=== PATIENT | female | born 1980 | race Caucasian/White ===

== ENCOUNTER 2017-09-25 20:54 | Emergency (ER) | payer OTHER ==
[2017-09-25] MEDS ORDERED: Ketorolac INJ* 30 MG/ML 1 ML VIAL IV PUSH ONE (22:46)
[2017-09-25] MEDS ORDERED: Acetaminophen TAB* 325 MG PO ONE (22:46)
[2017-09-25] MEDS ORDERED: NS 0.9% 1000 ML* 1,000 ML IV ONE (22:46)
[2017-09-25] MEDS ORDERED: Metoclopramide IV* 5 MG/ML 2 ML VIAL IV SLOW PU ONE (22:47)
[2017-09-25 23:33] LABS: ABS Basophils 0 10^3/ul (0-0.2); ABS Eosinophils 0 10^3/ul (0-0.6); ABS Lymphocytes 0.9 10^3/ul (1.0-4.8); ABS Monocytes 0.7 10^3/ul (0-0.8); ABS Neutrophils 4.5 10^3/ul (1.5-7.7); ABS Nucleated RBC 0 10^3/ul; Eosinophil % 0.6 % (0-6); Hematocrit 41 % (35-47); Hemoglobin 13.8 g/dl (12.0-16.0); Lymphocyte % 14.3 % (25-47); Mean Corpuscular HGB Conc 34 g/dl (31-36); Mean Corpuscular Hemoglobin 30 pg (27-31); Mean Corpuscular Volume 87 fL (80-97); Mean Platelet Volume 8.1 um3 (7.4-10.4); Nucleated Red Blood Cells % 0; Platelet Count 150 10^3/ul (150-450); Red Blood Count 4.69 10^6/ul (4.00-5.40); Red Cell Distribution Width 14 % (10.5-15); White Blood Count 6.2 10^3/ul (3.5-10.8)
[2017-09-25 23:42] LABS: INR 1.08 (0.77-1.02)
[2017-09-26 00:55] LABS: Urine Appearance Cloudy; Urine Blood 1+ (Negative); Urine Color Yellow; Urine Ketones Trace (Negative); Urine Protein Negative (Negative); Urine Urobilinogen Negative (Negative)
[2017-09-26] MEDS ORDERED: Lidocaine 2% EPI 1:200000 MPF*10-20 ML VIAL ONE (01:03)
[2017-09-26 02:33] VITALS: BP 90/53
--- NOTE | 2017-09-26 02:59 | ED ---
Zenia Brown Emily, scribed for Lakeisha Bee MD on 09/25/17 at 2239 . Headache - HPI Summary HPI Summary: This patient is a 36 year old F presenting to [facility] accompanied by family with a chief complaint of headache that began 5 days ago. The patient rates the pain 8/10 in severity. Symptoms aggravated by light. Symptoms alleviated by nothing. Patient reports fever (100 F), chills, rash around umbilicus (began 3 days ago) , dyspnea, rib pain, neck pain, back pain, pain in bones, and decreased appetite. Patient denies cough, sore throat, nausea, and vomiting. - History Of Current Complaint Chief Complaint: EDHeadache Stated Complaint: HEADACHE/RED SPOTS ON STOMACH Time Seen by Provider: 09/25/17 22:24 Hx Obtained From: Patient Hx Last Menstrual Period: 08/28/13 Onset/Duration: Sudden Onset, Started days ago, Still Present Initially Headache Was: Severe Currently Pain Is: Current Pain Scale(0-10)= - 8, Severe Timing: Constant Aggravating Factor: Nothing Allevating Factors: Nothing Associated Signs And Symptoms: Other (Noted In Comments) - Positive fever (100 F ), chills, rash around umbilicus (began 3 days ago), dyspnea, rib pain, neck pain, back pain, pain in bones, and decreased appetite. Negative cough, sore throat, nausea, and vomiting. - Allergies/Home Medications Allergies/Adverse Reactions: Allergies Allergy/AdvReac Type Severity Reaction Status Date / Time apple Allergy Itching Verified 09/25/17 21:13 elias Allergy Itching Verified 09/25/17 21:13 codeine Allergy Vomiting Verified 09/25/17 21:13 mold Allergy Airway Verified 09/25/17 21:13 Obstruction MS Codeine [Codeine] Allergy Vomiting Verified 09/24/13 10:22 peach Allergy Itching Verified 09/25/17 21:13 PMH/Surg Hx/FS Hx/Imm Hx Previously Healthy: No Endocrine/Hematology History: Denies: Hx Diabetes, Hx Thyroid Disease Cardiovascular History: Denies: Hx Hypertension Respiratory History: Reports: Hx Asthma Denies: Hx Chronic Obstructive Pulmonary Disease (COPD) GI History: Denies: Hx Ulcer - Surgical History Surgery Procedure, Year, and Place: brain surgery 1994 Infectious Disease History: Unable to Obtain/Confirm Infectious Disease History: Denies: Hx Hepatitis, Hx Human Immunodeficiency Virus (HIV), Traveled Outside the [place] in Last 30 Days - Family History Known Family History: Negative: Diabetes - Social History Occupation: Employed Part-time Lives: Alone Alcohol Use: None Hx Substance Use: No Substance Use Type: Reports: None Hx Tobacco Use: No Smoking Status (MU): Never Smoked Tobacco Review of Systems Positive: Fever, Chills Negative: Sore Throat Positive: Other - Positive dyspnea. Negative: Cough Positive: Other - Positive decreased appetite. Negative: Vomiting, Nausea Positive: Other - Positive neck pain, back pain, and pain "in bones" Positive: Rash All Other Systems Reviewed And Are Negative: Yes Physical Exam - Summary Physical Exam Summary: VITAL SIGNS: Reviewed. GENERAL: Patient is a well-developed and nourished female who is lying comfortable in the stretcher. Patient is not in any acute respiratory distress. HEAD AND FACE: No signs of trauma. No ecchymosis, hematomas or skull depressions. No sinus tenderness. EYES: PERRLA, EOMI x 2, No injected conjunctiva, no nystagmus. EARS: Hearing grossly intact. Ear canals and tympanic membranes are within normal limits. MOUTH: Oropharynx within normal limits. NECK: trachea is midline, no adenopathy, no JVD, no carotid bruit, no c-spine tenderness, nuchal rigidity CHEST: Symmetric, no tenderness at palpation LUNGS: Clear to auscultation bilaterally. No wheezing or crackles. CVS: Regular rate and rhythm, S1 and S2 present, no murmurs or gallops appreciated. ABDOMEN: Soft, non-tender. No signs of distention. No rebound no guarding, and no masses palpated. Bowel sounds are normal. EXTREMITIES: FROM in all major joints, no edema, no cyanosis or clubbing. NEURO: Alert and oriented x 3. No acute neurological deficits. Speech is normal and follows commands. SKIN: Dry and warm. Localized papillary rash around the umbilicus. Triage Information Reviewed: Yes Vital Signs On Initial Exam: Initial Vitals Temp Pulse Resp BP Pulse Ox 99.6 F 91 18 107/77 98 09/25/17 21:07 09/25/17 21:07 09/25/17 21:07 09/25/17 21:07 09/25/17 21:07 Vital Signs Reviewed: Yes Procedures - Lumbar Puncture L3-L4 Position: Lateral Decubitus Aseptic Technique: Lidocaine Anesthesia Used: 2.0% Lido Spinal Needle Used: 20 Gauge Lumbar Puncture Note: Clear CSF. Collected 4 tubes. Diagnostics - Vital Signs Vital Signs Temp Pulse Resp BP Pulse Ox 09/25/17 21:07 99.6 F 91 18 107/77 98 - Laboratory Result Diagrams: 09/25/17 23:18 09/25/17 23:18 Lab Statement: Any lab studies that have been ordered have been reviewed, and results considered in the medical decision making process. 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 ED physician has reviewed this radiology report. Re-Evaluation - Re-Evaluation First Eval Re-Evaluation Time: 22:56 Change: Unchanged Comment: Pt refused a CXR Second Eval Re-Evaluation Time: 00:14 Change: Unchanged Comment: Long discussion with pt and she agreed to a head CT. If the head CT shows no mass or bleed, she agrees to a spinal tap. She refuses all medications and IV, states she can handle her symptoms and just wants to know whats going on. Headache Course/Dx - Course Course Of Treatment: This patient is a 36 year old F presenting to [facility] accompanied by family with a chief complaint of headache that began 5 days ago. Patient reports fever (100 F), chills, rash around umbilicus (began 3 days ago) , dyspnea, rib pain, neck pain, back pain, pain in bones, and decreased appetite. Upon physical exam, the pt had nuchal rigidity. 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 Pt refused an XR, IV, and all medications. Spinal tap was negative for viral and bacterial meningitis. Blood work and UA obtained. Patient will be discharged with follow up from PCP. The patient is agreeable with this plan. - Diagnoses Provider Diagnoses: Viral syndrome Discharge - Sign-Out/Discharge Documenting (check all that apply): Discharge/Admit/Transfer - Discharge home - Discharge Plan Condition: Stable Disposition: HOME Patient Education Materials: Viral Syndrome (ED) [place]errals: [facility] [place] [[place]] Additional Instructions: RETURN TO THE EMERGENCY DEPARTMENT FOR NEW OR WORSENING SYMPTOMS The documentation as recorded by the Zenia north Emily accurately reflects the service I personally performed and the decisions made by me, Lakeisha Bee MD.
--- NOTE | 2017-09-26 07:17 | RAD ---
INDICATION: Headache, history of astrocytoma and prior brain surgery 1994. COMPARISON: There are no prior studies available for comparison. TECHNIQUE: Contiguous axial sections of the brain were obtained from the skull base to the vertex without contrast. FINDINGS: The ventricles and cisterns appear within normal limits. There is a focal small to moderate size area of encephalomalacia present in the right frontal lobe. There are postsurgical changes in the adjacent right frontal bone and this is likely related to the patient's prior surgery. No other focal abnormality or mass effect is seen. There is no evidence for hemorrhage. The visualized portion of the paranasal sinuses and mastoid air cells appear clear. IMPRESSION: 1. NO EVIDENCE FOR ACUTE INTRACRANIAL ABNORMALITY. 2. THERE IS A FOCAL AREA OF ENCEPHALOMALACIA IN THE RIGHT FRONTAL LOBE LIKELY RELATED TO THE PATIENT'S PRIOR SURGERY. RECOMMEND CLINICAL CORRELATION.
== END 2017-09-26 02:30 | disposition home or self-care (01) ==
LOC: ED 20:54
DX: B34.9 Viral infection, unspecified (principal); R50.9 Fever, unspecified; J45.909 Unspecified asthma, uncomplicated; Z88.5 Allergy status to narcotic agent; Z91.018 Allergy to other foods
CPT/HCPCS: 36415; 62270; 70450; 80053; 81003; 81015; 82945; 83605; 84157; 84702; 85025; 85610; 85730; 86140; 86308; 86618; 86788; 86789; 87040; 87070; 87086; 87205; 87476; 87529; 87651; 87798; 89051; 99284

== ENCOUNTER 2018-10-15 17:47 | Emergency (ER) | payer OTHER ==
[2018-10-15 17:59] VITALS: BP 108/85
[2018-10-15] MEDS ORDERED: Albuterol 2.5 MG/3 ML NEB.SOL* (0.083%) INH ONE (18:07)
[2018-10-15] MEDS ORDERED: Ipratropium 0.5MG/2.5ML NEB* 0.5 MG/2.5 ML NEB.SOLN INH ONE (18:07)
[2018-10-15] MEDS ORDERED: Albuterol HFA INHALER* 8 gm MDI INH ONE (19:13)
--- NOTE | 2018-10-15 19:20 | UC ---
Respiratory Complaint HPI - HPI Summary HPI Summary: 37 yo female with hx of asthma presents with wheezing x 4 days thinks it is triggered by animal dander has a cat and dog no fever cough not productive has not used an inhaler for 3 years - History of Current Complaint Chief Complaint: UCRespiratory Stated Complaint: ASTHMA Time Seen by Provider: 10/15/18 17:58 Hx Obtained From: Patient Hx Last Menstrual Period: [id number] Onset/Duration: Gradual Onset, Lasting Days Timing: Constant Severity Initially: Mild Severity Currently: Moderate Pain Intensity: 0 Character: Cough: Nonproductive Aggravating Factors: Allergens Alleviating Factors: Nothing Associated Signs And Symptoms: Positive: Wheezing Related History: Similar Episode/Dx as: - asthma - Allergies/Home Medications Allergies/Adverse Reactions: Allergies Allergy/AdvReac Type Severity Reaction Status Date / Time apple Allergy Itching Verified 10/15/18 18:00 elias Allergy Itching Verified 10/15/18 18:00 codeine Allergy Vomiting Verified 10/15/18 18:00 mold Allergy Airway Verified 10/15/18 18:00 Obstruction peach Allergy Itching Verified 10/15/18 18:00 PMH/Surg Hx/FS Hx/Imm Hx Previously Healthy: Yes Respiratory History: Asthma - Surgical History Surgical History: Yes Surgery Procedure, Year, and Place: brain surgery 1994 - Family History Known Family History: Positive: Hypertension, Respiratory Disease Negative: Diabetes - Social History Alcohol Use: None Substance Use Type: None Smoking Status (MU): Never Smoked Tobacco Review of Systems All Other Systems Reviewed And Are Negative: Yes Constitutional: Positive: Negative Skin: Positive: Negative Eyes: Positive: Negative ENT: Positive: Negative Respiratory: Positive: Cough - wheezing Cardiovascular: Positive: Negative Gastrointestinal: Positive: Negative Genitourinary: Positive: Negative Motor: Positive: Negative Neurovascular: Positive: Negative Musculoskeletal: Positive: Negative Neurological: Positive: Negative Psychological: Positive: Negative Physical Exam Triage Information Reviewed: Yes Appearance: Well-Appearing, No Pain Distress, Well-Nourished Vital Signs: Initial Vital Signs Temp 99.2 F 10/15/18 17:53 Pulse 71 10/15/18 17:53 Resp 18 10/15/18 17:53 BP 108/85 10/15/18 17:53 Pulse Ox 97 10/15/18 17:53 Vital Signs Reviewed: Yes Eyes: Positive: Conjunctiva Clear ENT: Positive: Hearing grossly normal. Negative: Nasal congestion, Nasal drainage, Trismus, Hoarse voice Neck: Positive: Supple, Nontender, No Lymphadenopathy Respiratory: Positive: No respiratory distress, No accessory muscle use, Wheezing Cardiovascular: Positive: RRR, No Murmur Musculoskeletal: Positive: ROM Intact, No Edema Neurological: Positive: Alert Psychological Exam: Normal Skin Exam: Normal Re-Evaluation - Re-Evaluation First Eval Change: Improved - decreased wheezing, better air movement, PF 290 Respiratory Course/Dx - Course Course Of Treatment: refuses steroids - Differential Dx/Diagnosis Provider Diagnosis: Bronchospasm, acute Discharge - Sign-Out/Discharge Documenting (check all that apply): Patient Departure All imaging exams completed and their final reports reviewed: No Studies - Discharge Plan Condition: Stable Disposition: HOME Patient Education Materials: Bronchospasm (ED), How to Use a Metered-Dose Inhaler and a Spacer (ED) Referrals: [facility] – [place] [facility] [Outside] (call this number to help you find a local primary care provider ) Estiven Calvillo MD [Medical Doctor] - 2 Weeks Additional Instructions: recheck for new or worsening symptoms - Billing Disposition and Condition Condition: STABLE Disposition: Home
== END 2018-10-15 19:25 | disposition home or self-care (01) ==
LOC: UCEAST 17:47
DX: R06.2 Wheezing (principal); J45.909 Unspecified asthma, uncomplicated; Z88.5 Allergy status to narcotic agent
CPT/HCPCS: 99213; A9270-GY; G0463

== ENCOUNTER 2018-11-20 16:50 | Emergency (ER) | payer OTHER ==
[2018-11-20 17:03] VITALS: BP 101/75
[2018-11-20] MEDS ORDERED: Albuterol HFA INHALER* 8 gm MDI INH ONE (17:18)
--- NOTE | 2018-11-20 17:21 | UC ---
Respiratory Complaint HPI - HPI Summary HPI Summary: 37-year-old woman comes in with a chief complaint of wheezing. Patient had a history of asthma when she was much younger however had not been having problems for years with the asthma. Over the last several months she started having some intermittent wheezing especially at night. She was seen here little bit more than a month ago and was given an albuterol inhaler which she has used with increasing frequency primarily in the evening. It does help with her wheezing. She's not been able to get a primary care physician since the last visit. Her albuterol inhalers no empty. Denies any shortness of breath at this time. No edema no upper respiratory tract infection symptoms no fevers or chills. No edema. - History of Current Complaint Chief Complaint: UCAsthma Stated Complaint: ASTHMA Time Seen by Provider: 11/20/18 16:55 Hx Last Menstrual Period: 10/21/2018 Pain Intensity: 4 - Allergies/Home Medications Allergies/Adverse Reactions: Allergies Allergy/AdvReac Type Severity Reaction Status Date / Time apple Allergy Itching Verified 11/20/18 17:04 elias Allergy Itching Verified 11/20/18 17:04 codeine Allergy Vomiting Verified 11/20/18 17:04 mold Allergy Airway Verified 11/20/18 17:04 Obstruction peach Allergy Itching Verified 11/20/18 17:04 Home Medications: Home Medications Albuterol HFA INHALER* [Ventolin HFA Inhaler*] 11/20/18 [History] PMH/Surg Hx/FS Hx/Imm Hx Previously Healthy: Yes Respiratory History: Asthma - Surgical History Surgical History: Yes Surgery Procedure, Year, and Place: brain surgery 1994 - Family History Known Family History: Positive: Hypertension, Respiratory Disease Negative: Diabetes - Social History Alcohol Use: None Substance Use Type: None Smoking Status (MU): Never Smoked Tobacco Review of Systems All Other Systems Reviewed And Are Negative: Yes Constitutional: Positive: Negative Skin: Positive: Negative Eyes: Positive: Negative ENT: Positive: Negative Respiratory: Positive: Shortness Of Breath, Other - see hpi Cardiovascular: Positive: Negative Gastrointestinal: Positive: Negative Motor: Positive: Negative Neurovascular: Positive: Negative Musculoskeletal: Positive: Negative Neurological: Positive: Negative Psychological: Positive: Negative Is Patient Immunocompromised?: No Physical Exam Triage Information Reviewed: Yes Appearance: Well-Appearing, No Pain Distress, Well-Nourished Vital Signs: Initial Vital Signs Temp 98.8 F 11/20/18 16:55 Pulse 75 11/20/18 16:55 Resp 16 11/20/18 16:55 BP 101/75 11/20/18 16:55 Pulse Ox 99 11/20/18 16:55 Vital Signs Reviewed: Yes Eye Exam: Normal Eyes: Positive: Conjunctiva Clear ENT: Negative: Nasal drainage Neck: Positive: Supple Respiratory: Positive: Lungs clear, Normal breath sounds, No respiratory distress Cardiovascular: Positive: RRR Musculoskeletal: Positive: Strength Intact, ROM Intact, No Edema Neurological: Positive: Alert, Muscle Tone Normal Psychological: Positive: Age Appropriate Behavior Skin Exam: Normal Respiratory Course/Dx - Course Course Of Treatment: Wrote a prescription for albuterol to be used as needed. We discussed getting a primary care physician which is the plan at present. Also discussed inhaled steroids. She is reluctant to start steroids. I wrote a prescription for Qvar. Patient said she would try it if her wheezing did Not improve. Patient does have a cat although she is unsure of the allergen trigger. I let her know that if she had a primary care doctor she could also visit opto mechanical engineer which may be helpful in the long run. Patient has no wheezing right now and did not need treatment here in clinic now. No edema or evidence of a non-bronchospasm cause for the wheezing at this time. I let the patient know that if her insurance does not pay for the Qvar to ask the pharmacist called here so that we can prescribe an inhaled steroid that is covered by her insurance. - Differential Dx/Diagnosis Provider Diagnosis: Asthma Discharge ED - Sign-Out/Discharge Documenting (check all that apply): Patient Departure All imaging exams completed and their final reports reviewed: No Studies - Discharge Plan Condition: Stable Disposition: HOME Prescriptions: Albuterol HFA INHALER* [Ventolin HFA Inhaler*] 2 puff INH Q4H PRN #1 mdi PRN Reason: Wheezing Beclomethasone 80 MCG MDI(NF) [Qvar 80 MCG MDI(NF)] 2 puff INH BID #1 mdi Patient Education Materials: Asthma (ED) Ref[place]: [facility] [place]] Additional Instructions: FOLLOW UP WITH YOUR DOCTOR. GET RECHECKED SOONER IF YOUR CONDITION WORSENS OR ANY QUESTIONS OR CONCERNS. - Billing Disposition and Condition Condition: STABLE Disposition: Home
== END 2018-11-20 17:30 | disposition home or self-care (01) ==
LOC: UCEAST 16:50
DX: J45.909 Unspecified asthma, uncomplicated (principal); Z88.5 Allergy status to narcotic agent
CPT/HCPCS: 99212; A9270-GY; G0463